=== PATIENT | male | born 1950 | race Caucasian/White ===

== ENCOUNTER → 2016-12-11 | Day surgery (SDC) | payer MEDICARE, OTHER ==
[~2016-12-11] MED LIST: FISH OIL 1,2001 EAC1 PO; NORCO 10-325 T1 EACH PO; PANTOPRAZOLE SO40 MG PO
== END | disposition home or self-care (01) ==
LOC: OR 09:31
PROVIDERS: Orthopaedic Surgery
PROC: 0PSJ04Z Reposition Left Radius with Internal Fixation Device, Open Approach (ICD-10-PCS; principal; 2016-12-11 16:15)
DX: S52.502A Unspecified fracture of the lower end of left radius, initial encounter for closed fracture (principal); K21.9 Gastro-esophageal reflux disease without esophagitis; M19.90 Unspecified osteoarthritis, unspecified site; Z88.0 Allergy status to penicillin; Z98.890 Other specified postprocedural states; Z79.899 Other long term (current) drug therapy
CPT/HCPCS: 73100; 76000; 80048; 81001; 85025; 93005; C1713; J2250; J2405; J2795; J3010; J7030; J7120